=== PATIENT | male | born 1980 | race Caucasian/White ===

== ENCOUNTER 2021-11-02 13:59 | Emergency (ER) | payer BC ==
[2021-11-02] MEDS ORDERED: LISINOPRIL40 MG PO (14:15)
[2021-11-02] MEDS ORDERED: NORVASC 10MG10 MG PO (14:15)
[2021-11-02] MEDS ORDERED: WELLBUTRIN XL300 M1 PO (14:15)
[2021-11-02] MEDS ORDERED: METFORMIN ER500 MG PO (14:17)
[2021-11-02] MEDS ORDERED: ATORVASTATIN CA40 MG PO (14:17)
[2021-11-02 14:35] LABS: BASO # 0.05 K/mm3 (0.02-0.10); EOS # 0.16 K/mm3 (0.04-0.40); EOS % 1.9 % (0.0-4.0); HEMATOCRIT 40.8 % (42.0-52.0); HEMOGLOBIN 14.9 g/dL (13.5-18.0); MEAN CELL VOLUME 91 fl (78-100); MEAN CORPUSCULAR HEMOGLOBIN 33 pg (27-31); MEAN CORPUSCULAR HGB CONC 37 g/dL (33-37); MONO # 0.61 K/mm3 (0.20-0.80); NEU # 5.95 K/mm3 (1.40-6.50); PLATELET COUNT 180 K/mm3 (130-400); RED BLOOD COUNT 4.51 M/mm3 (4.20-5.60); RED CELL DISTRIBUTION WIDTH 12.2 % (11.5-14.5); WHITE BLOOD COUNT 8.6 K/mm3 (4.8-10.8)
[2021-11-02 14:47] LABS: ALBUMIN 4.5 g/dL (3.5-5.0)
[2021-11-02 14:49] LABS: SODIUM 137 mmol/L (136-145)
[2021-11-02 14:50] LABS: GLUCOSE 164 mg/dL (75-110); TOTAL PROTEIN 7.7 g/dL (6.4-8.3)
[2021-11-02 14:51] LABS: CALCIUM 9.7 mg/dL (8.3-10.5); CARBON DIOXIDE 22 mmol/L (22-29)
[2021-11-02 14:54] LABS: TOTAL BILIRUBIN 1.5 mg/dL (0.2-1.2)
[2021-11-02 14:55] LABS: AST-SGOT 65 U/L (5-34)
[2021-11-02 14:58] LABS: ALT/SGPT 120 U/L (0-55)
[2021-11-02 15:09] LABS: TROPONIN-I < 0.030 ng/mL (<0.030)
[2021-11-02 16:41] VITALS: BP 152/85
== END 2021-11-02 16:41 | disposition home or self-care (01) ==
LOC: ED 13:59
PROVIDERS: Nurse Practitioner
DX: I16.0 Hypertensive urgency (principal); Z20.822 Contact with and (suspected) exposure to COVID-19; Z87.891 Personal history of nicotine dependence

== ENCOUNTER → 2023-08-28 | Outpatient (CLI) | payer BC ==
[~2023-08-28] MED LIST: ATORVASTATIN CA40 MG PO; Iohexol 300 - 100 ML VIAL IV ONE; LISINOPRIL40 MG PO; METFORMIN ER500 MG PO; NORVASC 10MG10 MG PO; WELLBUTRIN XL300 M1 PO
== END ==
LOC: RAD 12:47
DX: K76.0 Fatty (change of) liver, not elsewhere classified (principal)
CPT/HCPCS: Q9967

== ENCOUNTER → 2023-09-13 | Outpatient (CLI) | payer BC ==
[~2023-09-13] MED LIST changes: -Iohexol 300 - 100 ML VIAL IV ONE
== END ==
LOC: RAD 15:55
DX: M47.816 Spondylosis without myelopathy or radiculopathy, lumbar region (principal)